=== PATIENT | male | born 1985 | race Caucasian/White ===

== ENCOUNTER 2023-04-05 20:16 | Outpatient (REF) | payer OTHER, SELFPAY ==
--- NOTE | ~2023-04-05 | MR_ITS ---
EXAMINATION: MR SHOULDER WITHOUT CONTRAST, RIGHT CLINICAL INFORMATION: Right shoulder pain following an injury in December 2022. Numbness. Positive Yousif test and empty can test. Anterior pain. COMPARISON: None available. TECHNIQUE: MRI of the shoulder without contrast was performed on a high-field scanner. FINDINGS: ROTATOR CUFF: Intact. No muscle atrophy or fatty infiltration. BICEPS: Mild fluid within the proximal long head biceps tendon sheath consistent with mild tenosynovitis. No transverse tendon tear or tendon retraction. CORACOACROMIAL ARCH: The undersurface of the acromion is curved with no subacromial spur. Moderate acromioclavicular osteoarthritis. LABRUM/CAPSULE: No labral tear. Intact joint capsule. GLENOHUMERAL JOINT/MARROW: Intact articular cartilage. Minimal degenerative cystic change at the posterior aspect of the greater tuberosity. No acute osseous abnormality. MR/MR shoulder RT wo con IMPRESSION: 1. Mild proximal long head biceps tenosynovitis without a measurable tendon tear. 2. Moderate acromioclavicular osteoarthritis. 3. No labral tear.
== END 2023-04-05 20:17 | disposition home or self-care (01) ==
LOC: HO.MRI 20:16
PROVIDERS: PCP Internal Medicine; Visit Provider Physician Assistant Medical
DX: S43.401A Unspecified sprain of right shoulder joint, initial encounter (principal)
CPT/HCPCS: 73221